=== PATIENT | female | born 1950 | race Caucasian/White ===

== ENCOUNTER 2023-06-15 21:27 | Inpatient (IN) | payer BC, OTHER ==
[~2023-06-15] VITALS: Ht 172.7 cm; Wt 150.6 kg
[2023-06-15 22:33] LABS: BASOPHILS % (AUTO) 0.1 % (0.0-2.0); EOSINOPHILS # (AUTO) 0.1 K/uL (0.0-0.7); EOSINOPHILS % (AUTO) 1.7 % (0.0-6.0); HEMATOCRIT 37 % (33-45); LYMPHOCYTES # (AUTO) 1.3 K/uL (0.8-4.8); LYMPHOCYTES % (AUTO) 15.9 % (20.0-44.0); MEAN CORPUSCULAR HEMOGLOBIN 27 PG (26.0-33.0); MEAN CORPUSCULAR HGB CONC 32 g/dl (31.0-36.0); MEAN CORPUSCULAR VOLUME 83 fL (82-100); MONOCYTES # (AUTO) 0.9 K/uL (0.1-1.30); MONOCYTES % (AUTO) 10.5 % (2.0-12.0); NEUTROPHILS # (AUTO) 6.1 K/uL (1.8-8.9); NEUTROPHILS % (AUTO) 71.8 % (43.0-81.0); PLATELET COUNT (AUTO) 227 K/uL (150-450); RED BLOOD CELL COUNT(AUTO) 4.51 MIL/uL (4.0-5.2); RED CELL DISTRIBUTION WIDTH 17.2 % (11.5-15.0); WHITE BLOOD COUNT (AUTO) 8.5 K/uL (4.3-11.0)
[2023-06-15] MEDS ORDERED: methylPREDNISolone SOD SUCC 125 MG/2ML VIAL ONE (22:54)
[2023-06-15 23:00] LABS: ALANINE AMINOTRANSFERASE 18 U/L (12-78); ALBUMIN 2.6 g/dL (3.4-5.0); ALKALINE PHOSPHATASE 129 U/L (46-116); ASPARTATE AMINOTRANSFERASE 26 U/L (15-37); BILIRUBIN,DIRECT 0.2 mg/dL (0.0-0.2); BILIRUBIN,TOTAL 0.5 mg/dL (0.2-1.0); CALCIUM, SERUM 8.4 mg/dL (8.5-10.1); CHLORIDE 101 mmol/L (98-107); CREATININE 0.7 mg/dL (0.6-1.3); GLUCOSE 125 mg/dL (74-106); NT-PRO BNP 1078 pg/mL (0-125); POTASSIUM 3.7 mmol/L (3.5-5.1); SODIUM SERUM 143 mmol/L (136-145); TOTAL PROTEIN, SERUM 7.3 g/dL (6.4-8.2); UREA NITROGEN, BLOOD 18 mg/dL (7-18)
[2023-06-15] MEDS: methylPREDNISolone SOD SUCC 125 MG/2ML VIAL IV ONE (23:00)
[2023-06-15 23:15] LABS: CARBON DIOXIDE 52 mmol/L (21-32)
[2023-06-15 23:36] LABS: APPEARANCE,URINE TURBID (CLEAR); BILIRUBIN,URINE NEGATIVE (NEGATIVE); BLOOD, URINE NEGATIVE Ery/uL (NEGATIVE); COLOR,URINE DARK YELLOW (YELLOW); KETONES,URINE NEGATIVE (NEGATIVE); LEUKOCYTE ESTERASE ,URINE 1+ (NEGATIVE); NITRITE, URINE POSITIVE (NEGATIVE); PROTEIN,URINE NEGATIVE (NEGATIVE); UGLUCOSE NEGATIVE (NEGATIVE)
[2023-06-15 23:37] LABS: ADD URINE CULTURE YES; BACTERIA,URINE Few /HPF (None Seen); SQUAMOUS EPITHELIAL CELL,UR Rare /HPF (None Seen)
[2023-06-15] MEDS ORDERED: FUROSEMIDE 40 MG/4 ML VIAL ONE (23:48)
[2023-06-15] MEDS: FUROSEMIDE 40 MG/4 ML VIAL IV ONE (23:56)
[2023-06-15] MEDS ORDERED: NITROFURANTOIN/MONOHYDRATE MACROCRYSTALS 100 MG CAPSULE ONE (23:58)
[2023-06-16] VITALS (23 sets, daily range): BP systolic 105–152; BP diastolic 52–119; TEMP 97.7–98.6; O2SAT 91–96
[2023-06-16] MEDS: NITROFURANTOIN/MONOHYDRATE MACROCRYSTALS 100 MG CAPSULE PO ONE (00:01)
[2023-06-16 07:43] LABS: ABG BASE EXCESS 19.9 mmol/L; ABG OXYGEN SATURATION 97.9 % (92.0-98.5); ABG PCO2 102.4 mmHg (35.0-45.0); ABG PH 7.321 (7.350-7.450); ABG PO2 110.9 mmHg (75.0-100.0); ABG TOTAL HEMOGLOBIN 13.8 G/dL (12.0-16.0); COHb 0.4 % (0.5-1.5); MetHb 0.3 % (0.0-1.5); O2Hb 97.2 % (94.0-97.0); SITE, ABG Left Radial
[2023-06-16] MEDS ORDERED: MELA5TAB PO (08:38)
[2023-06-16] MEDS ORDERED: ACET-2605 PO (08:38)
[2023-06-16] MEDS ORDERED: ERYT3.5O9 EACHEYE (08:38)
[2023-06-16] MEDS ORDERED: NA P133E RC (08:38)
[2023-06-16] MEDS ORDERED: FAMO-130 PO (08:38)
[2023-06-16] MEDS ORDERED: POLY17PO4 PO (08:38)
[2023-06-16] MEDS ORDERED: CRAN250C PO (08:38)
[2023-06-16] MEDS ORDERED: AMLO2.5T2 PO (08:38)
[2023-06-16] MEDS ORDERED: ACET-868 PO (08:38)
[2023-06-16] MEDS ORDERED: ATEN50TA PO (08:38)
[2023-06-16] MEDS ORDERED: MENT113O6 TP (08:38)
[2023-06-16] MEDS ORDERED: BISA10SU11 RC (08:38)
[2023-06-16] MEDS ORDERED: MAGN400O6 PO (08:38)
[2023-06-16] MEDS ORDERED: ATOR20TA PO (08:38)
[2023-06-16] MEDS ORDERED: TOLN1POW TP (08:38)
[2023-06-16] MEDS ORDERED: HYDR-4076 PO (08:38)
[2023-06-16] MEDS ORDERED: BUDE0.253 IH (08:38)
[2023-06-16] MEDS ORDERED: DOCU250C14 PO (08:38)
[2023-06-16] MEDS ORDERED: PETR113O TP (08:38)
[2023-06-16] MEDS ORDERED: FERR325T28 PO (08:38)
[2023-06-16] MEDS ORDERED: FURO-145 PO (08:38)
[2023-06-16 10:06] LABS: ABG OXYGEN SATURATION 92.5 % (92.0-98.5); ABG PCO2 88.5 mmHg (35.0-45.0); ABG PH 7.373 (7.350-7.450); ABG TOTAL HEMOGLOBIN 13.9 G/dL (12.0-16.0); COHb 0.3 % (0.5-1.5); MetHb 0.4 % (0.0-1.5); O2Hb 91.9 % (94.0-97.0); SITE, ABG Left Radial; VENT MODE, BG ST 12/5 30% RR 16
[2023-06-16] MEDS ORDERED: ONDANSETRON HCL/PF 4 MG/2 ML VIAL IV PRN (11:30)
[2023-06-16] MEDS ORDERED: hydrALAZINE HCL 25 MG TABLET PO PRN (11:30)
[2023-06-16 12:21] LABS: BASOPHILS % (AUTO) 0.1 % (0.0-2.0); HEMATOCRIT 39 % (33-45); HEMOGLOBIN 12.3 g/dL (11.5-14.8); LYMPHOCYTES # (AUTO) 0.8 K/uL (0.8-4.8); LYMPHOCYTES % (AUTO) 12.6 % (20.0-44.0); MEAN CORPUSCULAR HEMOGLOBIN 26 PG (26.0-33.0); MEAN CORPUSCULAR HGB CONC 31 g/dl (31.0-36.0); MEAN CORPUSCULAR VOLUME 84 fL (82-100); MONOCYTES # (AUTO) 0.1 K/uL (0.1-1.30); MONOCYTES % (AUTO) 1.3 % (2.0-12.0); NEUTROPHILS # (AUTO) 5.1 K/uL (1.8-8.9); PLATELET COUNT (AUTO) 236 K/uL (150-450); RED BLOOD CELL COUNT(AUTO) 4.69 MIL/uL (4.0-5.2); RED CELL DISTRIBUTION WIDTH 17.3 % (11.5-15.0)
[2023-06-16] MEDS: BUDESONIDE RESPULE INH 0.25 MG/2 ML AMPUL.NEB NEB SCH (15:00)
[2023-06-16 15:42] LABS: CALCIUM, SERUM 9.2 mg/dL (8.5-10.1); CREATININE 0.9 mg/dL (0.6-1.3); POTASSIUM 3.9 mmol/L (3.5-5.1)
[2023-06-16] MEDS: FAMOTIDINE/PF INJ 20 MG/2 ML VIAL IV SCH (16:45)
[2023-06-16] MEDS: FUROSEMIDE 40 MG/4 ML VIAL IV SCH (16:45)
[2023-06-16] MEDS: ENOXAPARIN SODIUM 40 MG/0.4 ML DISP.SYRIN SQ SCH (20:52)
[2023-06-16] MEDS: ATORVASTATIN 10 MG TABLET PO SCH (21:10)
[2023-06-16] MEDS: ACETAMINOPHEN 325 MG TABLET PO PRN (23:34)
[2023-06-17] VITALS (31 sets, daily range): BP systolic 102–144; BP diastolic 42–80; TEMP 97.9–98.3; O2SAT 88–99
[2023-06-17 04:22] LABS: BASOPHILS % (AUTO) 0.2 % (0.0-2.0); EOSINOPHILS # (AUTO) 0.1 K/uL (0.0-0.7); EOSINOPHILS % (AUTO) 1.3 % (0.0-6.0); HEMATOCRIT 37 % (33-45); HEMOGLOBIN 11.6 g/dL (11.5-14.8); LYMPHOCYTES # (AUTO) 1.1 K/uL (0.8-4.8); MEAN CORPUSCULAR HEMOGLOBIN 27 PG (26.0-33.0); MEAN CORPUSCULAR HGB CONC 32 g/dl (31.0-36.0); MEAN CORPUSCULAR VOLUME 84 fL (82-100); MONOCYTES # (AUTO) 0.9 K/uL (0.1-1.30); MONOCYTES % (AUTO) 8.9 % (2.0-12.0); NEUTROPHILS # (AUTO) 8.5 K/uL (1.8-8.9); NEUTROPHILS % (AUTO) 79.6 % (43.0-81.0); PLATELET COUNT (AUTO) 263 K/uL (150-450); RED CELL DISTRIBUTION WIDTH 17.3 % (11.5-15.0); WHITE BLOOD COUNT (AUTO) 10.6 K/uL (4.3-11.0)
[2023-06-17 04:39] LABS: CALCIUM, SERUM 8.9 mg/dL (8.5-10.1); CHLORIDE 96 mmol/L (98-107); CREATININE 0.8 mg/dL (0.6-1.3); GLUCOSE 120 mg/dL (74-106); MAGNESIUM 1.7 mg/dL (1.8-2.4); PHOSPHORUS 3.6 mg/dL (2.5-4.9); POTASSIUM 3.8 mmol/L (3.5-5.1); SODIUM SERUM 143 mmol/L (136-145); UREA NITROGEN, BLOOD 30 mg/dL (7-18)
[2023-06-17 04:41] LABS: CARBON DIOXIDE 49 mmol/L (21-32)
[2023-06-17 04:48] LABS: THYROID STIMULATING HORMONE 1.027 uIU/mL (0.358-3.74)
[2023-06-17] MEDS: MAGNESIUM OXIDE 400 MG TABLET PO ONE (08:05)
[2023-06-17] MEDS: AMLODIPINE BESYLATE 2.5 MG TABLET PO SCH (09:13)
[2023-06-17] MEDS: FAMOTIDINE (20 MG) 20 MG TABLET PO SCH (09:13)
[2023-06-17] MEDS: ATENOLOL 50 MG TABLET PO SCH (09:14)
[2023-06-17] MEDS: HYDROCODONE/APAP 5/325MG TABLET PO PRN (14:45)
[2023-06-17] MEDS: RIVAROXABAN 10 MG TABLET PO SCH (18:08)
[2023-06-18] VITALS (19 sets, daily range): BP systolic 114–133; BP diastolic 47–78; TEMP 97.5–98.4; O2SAT 87–100
[2023-06-18 05:34] LABS: CALCIUM, SERUM 8.6 mg/dL (8.5-10.1); CHLORIDE 94 mmol/L (98-107); CREATININE 0.8 mg/dL (0.6-1.3); GLUCOSE 105 mg/dL (74-106); POTASSIUM 3.6 mmol/L (3.5-5.1); SODIUM SERUM 141 mmol/L (136-145); UREA NITROGEN, BLOOD 31 mg/dL (7-18)
[2023-06-18 05:38] LABS: CARBON DIOXIDE 50 mmol/L (21-32)
[2023-06-18] MEDS ORDERED: Z GUARD REMEDY 4 OZ OINT TP PRN (08:30)
[2023-06-18] MEDS ORDERED: CEFTRIAXONE 1 G in IV D5W 50 ML IV SCH (09:00)
[2023-06-18] MEDS: Z GUARD REMEDY 4 OZ OINT TP SCH (09:35)
[2023-06-18] MEDS: CLOTRIMAZOLE 1% 15 GM TUBE TP SCH (09:35)
[2023-06-18] MEDS: NITROFURANTOIN/MONOHYDRATE MACROCRYSTALS 100 MG CAPSULE PO SCH (10:07)
[2023-06-18] MEDS: IPRATROPIUM NEB FS 0.5 MG/2.5 ML AMPUL.NEB NEB SCH (13:20)
[2023-06-18] MEDS: ALBUTEROL FS 2.5 MG/0.5 ML VIAL.NEB NEB SCH (13:20)
[2023-06-18 14:20] LABS: ABG OXYGEN SATURATION 90.6 % (92.0-98.5); ABG PCO2 79.6 mmHg (35.0-45.0); ABG PH 7.415 (7.350-7.450); ABG PO2 61.2 mmHg (75.0-100.0); ABG TOTAL HEMOGLOBIN 12.6 G/dL (12.0-16.0); AaDO2 15.2 mmHg; COHb 0.9 % (0.5-1.5); MetHb 0.2 % (0.0-1.5); O2Hb 89.6 % (94.0-97.0); SITE, ABG Left Radial
[2023-06-18] MEDS ORDERED: MAGNESIUM HYDROXIDE 30 ML UDC PO PRN (16:30)
[2023-06-18] MEDS ORDERED: POLYETHYLENE GLYCOL 3350 17 GM POWD.PACK PO PRN (16:30)
[2023-06-18] MEDS ORDERED: BISACODYL SUPP (10 MG) 10 MG/SUPP.RECT SUPP.RECT RC PRN (16:30)
[2023-06-18] MEDS ORDERED: hydrALAZINE HCL 25 MG TABLET PO PRN (16:30)
[2023-06-18] MEDS: PROSOURCE / PROSTAT (PYXIS) 30 ML UDC PO SCH (17:00)
[2023-06-18] MEDS: DOCUSATE SODIUM 250 MG CAPSULE PO SCH (17:53)
[2023-06-18] MEDS: FERROUS SULFATE (325 MG) 325 MG/TAB TABLET PO SCH (17:53)
[2023-06-19] VITALS (12 sets, daily range): BP systolic 108–145; BP diastolic 51–64; TEMP 97.7–99; O2SAT 90–99
[2023-06-19 07:14] LABS: BASOPHILS % (AUTO) 0.2 % (0.0-2.0); EOSINOPHILS # (AUTO) 0.2 K/uL (0.0-0.7); EOSINOPHILS % (AUTO) 2.6 % (0.0-6.0); HEMATOCRIT 35 % (33-45); HEMOGLOBIN 11.1 g/dL (11.5-14.8); LYMPHOCYTES # (AUTO) 1.4 K/uL (0.8-4.8); LYMPHOCYTES % (AUTO) 22.3 % (20.0-44.0); MEAN CORPUSCULAR HEMOGLOBIN 26 PG (26.0-33.0); MEAN CORPUSCULAR HGB CONC 32 g/dl (31.0-36.0); MEAN CORPUSCULAR VOLUME 83 fL (82-100); MONOCYTES # (AUTO) 0.7 K/uL (0.1-1.30); MONOCYTES % (AUTO) 10.6 % (2.0-12.0); NEUTROPHILS # (AUTO) 4.1 K/uL (1.8-8.9); NEUTROPHILS % (AUTO) 64.3 % (43.0-81.0); PLATELET COUNT (AUTO) 213 K/uL (150-450); RED BLOOD CELL COUNT(AUTO) 4.23 MIL/uL (4.0-5.2); RED CELL DISTRIBUTION WIDTH 17.3 % (11.5-15.0); WHITE BLOOD COUNT (AUTO) 6.5 K/uL (4.3-11.0)
[2023-06-19 07:38] LABS: CALCIUM, SERUM 8.4 mg/dL (8.5-10.1); CHLORIDE 93 mmol/L (98-107); CREATININE 0.7 mg/dL (0.6-1.3); GLUCOSE 94 mg/dL (74-106); POTASSIUM 3.1 mmol/L (3.5-5.1); SODIUM SERUM 137 mmol/L (136-145); UREA NITROGEN, BLOOD 23 mg/dL (7-18)
[2023-06-19 07:43] LABS: CARBON DIOXIDE 41 mmol/L (21-32)
[2023-06-19 08:52] LABS: ABG BASE EXCESS 19.1 mmol/L; ABG OXYGEN SATURATION 91.8 % (92.0-98.5); ABG PCO2 71.2 mmHg (35.0-45.0); ABG PH 7.436 (7.350-7.450); ABG PO2 64.6 mmHg (75.0-100.0); ABG TOTAL HEMOGLOBIN 12.1 G/dL (12.0-16.0); AaDO2 21.8 mmHg; COHb 0.9 % (0.5-1.5); MetHb 0.1 % (0.0-1.5); O2Hb 90.9 % (94.0-97.0); SITE, ABG Left Radial; VENT MODE, BG 1LPM NC
[2023-06-19] MEDS: FAMOTIDINE (20 MG) 20 MG TABLET PO SCH (09:14)
[2023-06-19] MEDS: MUPIROCIN OINT 2% 22 GM TUBE NS SCH (09:15)
[2023-06-19] MEDS: POTASSIUM CHLORIDE 20 MEQ TAB.PRT.SR PO SCH (11:17)
[2023-06-20] VITALS (19 sets, daily range): BP systolic 104–149; BP diastolic 39–69; TEMP 97.7–98.4; O2SAT 92–99
[2023-06-20] MEDS: FUROSEMIDE 40 MG TABLET PO SCH (08:44)
[2023-06-20] MEDS ORDERED: MUPI22OI7 NS (09:15)
[2023-06-20] MEDS ORDERED: RIVA10TA PO (09:15)
[2023-06-20] MEDS ORDERED: IPRA3AMP23 IH (09:15)
[2023-06-20 11:13] LABS: ABG BASE EXCESS 13.5 mmol/L; ABG OXYGEN SATURATION 92.2 % (92.0-98.5); ABG PH 7.448 (7.350-7.450); ABG TOTAL HEMOGLOBIN 12.5 G/dL (12.0-16.0); AaDO2 37.9 mmHg; MetHb 0.1 % (0.0-1.5); O2Hb 91.2 % (94.0-97.0); SITE, ABG Left Radial; VENT MODE, BG 1 L O2 NC
[2023-06-21] VITALS (15 sets, daily range): BP systolic 103–131; BP diastolic 53–68; TEMP 97.8–98.4; O2SAT 92–99
[2023-06-21] MEDS: AMLODIPINE BESYLATE 2.5 MG TABLET PO SCH (08:16)
[2023-06-21 10:12] LABS: CALCIUM, SERUM 8.1 mg/dL (8.5-10.1); CARBON DIOXIDE 38 mmol/L (21-32); CHLORIDE 97 mmol/L (98-107); CREATININE 0.7 mg/dL (0.6-1.3); GLUCOSE 162 mg/dL (74-106); POTASSIUM 3.1 mmol/L (3.5-5.1); SODIUM SERUM 139 mmol/L (136-145); UREA NITROGEN, BLOOD 16 mg/dL (7-18)
[2023-06-21] MEDS: POTASSIUM CHLORIDE 20 MEQ TAB.PRT.SR PO SCH (11:25)
[2023-06-21] MEDS ORDERED: NITR-84 PO (13:21)
[2023-06-21] MEDS ORDERED: AMLO2.5T4 PO (13:24)
[2023-06-21] MEDS ORDERED: FURO40TA5 PO (13:24)
[2023-06-21] MEDS ORDERED: NITROFURANTOIN/MONOHYDRATE MACROCRYSTALS 100 MG CAPSULE PO SCH (14:00)
[2023-06-22] VITALS (14 sets, daily range): BP systolic 108–134; BP diastolic 48–62; TEMP 98.1–98.6; O2SAT 94–98
[2023-06-22 07:14] LABS: BASOPHILS % (AUTO) 0.2 % (0.0-2.0); EOSINOPHILS # (AUTO) 0.3 K/uL (0.0-0.7); EOSINOPHILS % (AUTO) 3.8 % (0.0-6.0); HEMATOCRIT 35 % (33-45); HEMOGLOBIN 11.4 g/dL (11.5-14.8); LYMPHOCYTES # (AUTO) 1.5 K/uL (0.8-4.8); LYMPHOCYTES % (AUTO) 19.5 % (20.0-44.0); MEAN CORPUSCULAR HEMOGLOBIN 27 PG (26.0-33.0); MEAN CORPUSCULAR HGB CONC 32 g/dl (31.0-36.0); MEAN CORPUSCULAR VOLUME 82 fL (82-100); MONOCYTES # (AUTO) 0.7 K/uL (0.1-1.30); MONOCYTES % (AUTO) 9.8 % (2.0-12.0); NEUTROPHILS % (AUTO) 66.7 % (43.0-81.0); PLATELET COUNT (AUTO) 210 K/uL (150-450); RED CELL DISTRIBUTION WIDTH 17.3 % (11.5-15.0); WHITE BLOOD COUNT (AUTO) 7.5 K/uL (4.3-11.0)
[2023-06-22 08:00] LABS: CALCIUM, SERUM 8.4 mg/dL (8.5-10.1); CARBON DIOXIDE 37 mmol/L (21-32); CHLORIDE 99 mmol/L (98-107); CREATININE 0.7 mg/dL (0.6-1.3); GLUCOSE 106 mg/dL (74-106); MAGNESIUM 2.1 mg/dL (1.8-2.4); PHOSPHORUS 3.5 mg/dL (2.5-4.9); POTASSIUM 3.5 mmol/L (3.5-5.1); SODIUM SERUM 139 mmol/L (136-145); UREA NITROGEN, BLOOD 23 mg/dL (7-18)
[2023-06-22] MEDS: HYDROCODONE/APAP 10/325MG TABLET PO PRN (10:23)
[2023-06-23] VITALS (14 sets, daily range): BP systolic 110–130; BP diastolic 44–63; TEMP 97.3–98.8; O2SAT 92–100
[2023-06-23 07:38] LABS: BASOPHILS % (AUTO) 0.5 % (0.0-2.0); EOSINOPHILS # (AUTO) 0.3 K/uL (0.0-0.7); EOSINOPHILS % (AUTO) 3.9 % (0.0-6.0); HEMATOCRIT 35 % (33-45); HEMOGLOBIN 11.1 g/dL (11.5-14.8); LYMPHOCYTES # (AUTO) 1.4 K/uL (0.8-4.8); LYMPHOCYTES % (AUTO) 21.6 % (20.0-44.0); MEAN CORPUSCULAR HEMOGLOBIN 26 PG (26.0-33.0); MEAN CORPUSCULAR HGB CONC 32 g/dl (31.0-36.0); MEAN CORPUSCULAR VOLUME 82 fL (82-100); MONOCYTES # (AUTO) 0.7 K/uL (0.1-1.30); MONOCYTES % (AUTO) 11.3 % (2.0-12.0); NEUTROPHILS # (AUTO) 4.1 K/uL (1.8-8.9); NEUTROPHILS % (AUTO) 62.7 % (43.0-81.0); PLATELET COUNT (AUTO) 223 K/uL (150-450); RED BLOOD CELL COUNT(AUTO) 4.24 MIL/uL (4.0-5.2); RED CELL DISTRIBUTION WIDTH 17.2 % (11.5-15.0); WHITE BLOOD COUNT (AUTO) 6.5 K/uL (4.3-11.0)
[2023-06-23 07:45] LABS: CALCIUM, SERUM 8.2 mg/dL (8.5-10.1); CARBON DIOXIDE 38 mmol/L (21-32); CHLORIDE 100 mmol/L (98-107); CREATININE 0.7 mg/dL (0.6-1.3); GLUCOSE 92 mg/dL (74-106); MAGNESIUM 2.1 mg/dL (1.8-2.4); PHOSPHORUS 3.5 mg/dL (2.5-4.9); POTASSIUM 3.5 mmol/L (3.5-5.1); SODIUM SERUM 139 mmol/L (136-145); UREA NITROGEN, BLOOD 25 mg/dL (7-18)
[2023-06-23] MEDS: LORATADINE 10 MG TABLET PO SCH (20:19)
[2023-06-24] VITALS (15 sets, daily range): BP systolic 100–125; BP diastolic 46–54; TEMP 97.5–98.2; O2SAT 91–98
[2023-06-24] MEDS: ACETAMINOPHEN 325 MG TABLET PO PRN (21:18)
[2023-06-25] VITALS (11 sets, daily range): BP systolic 108–122; BP diastolic 40–63; TEMP 97.5–98.1; O2SAT 92–99
[2023-06-25 07:27] LABS: BASOPHILS % (AUTO) 0.4 % (0.0-2.0); CALCIUM, SERUM 8.1 mg/dL (8.5-10.1); CARBON DIOXIDE 38 mmol/L (21-32); CHLORIDE 100 mmol/L (98-107); CREATININE 0.6 mg/dL (0.6-1.3); EOSINOPHILS # (AUTO) 0.2 K/uL (0.0-0.7); EOSINOPHILS % (AUTO) 4.1 % (0.0-6.0); GLUCOSE 110 mg/dL (74-106); HEMATOCRIT 34 % (33-45); LYMPHOCYTES # (AUTO) 1.1 K/uL (0.8-4.8); LYMPHOCYTES % (AUTO) 20.9 % (20.0-44.0); MEAN CORPUSCULAR HEMOGLOBIN 27 PG (26.0-33.0); MEAN CORPUSCULAR HGB CONC 33 g/dl (31.0-36.0); MEAN CORPUSCULAR VOLUME 82 fL (82-100); MONOCYTES # (AUTO) 0.8 K/uL (0.1-1.30); MONOCYTES % (AUTO) 14.7 % (2.0-12.0); NEUTROPHILS # (AUTO) 3.1 K/uL (1.8-8.9); NEUTROPHILS % (AUTO) 59.9 % (43.0-81.0); PLATELET COUNT (AUTO) 230 K/uL (150-450); POTASSIUM 3.6 mmol/L (3.5-5.1); RED BLOOD CELL COUNT(AUTO) 4.12 MIL/uL (4.0-5.2); RED CELL DISTRIBUTION WIDTH 17.1 % (11.5-15.0); SODIUM SERUM 139 mmol/L (136-145); UREA NITROGEN, BLOOD 23 mg/dL (7-18); WHITE BLOOD COUNT (AUTO) 5.1 K/uL (4.3-11.0)
[2023-06-26] VITALS (12 sets, daily range): BP systolic 116–134; BP diastolic 46–71; TEMP 97.3–98.1; O2SAT 93–99
[2023-06-27] VITALS (13 sets, daily range): BP systolic 102–126; BP diastolic 49–58; TEMP 98–98.6; O2SAT 89–98
[2023-06-27] MEDS ORDERED: OLANZAPINE 10 MG VIAL IM ONE (17:30)
[2023-06-28] VITALS (10 sets, daily range): BP systolic 108–124; BP diastolic 53–73; TEMP 97.9–98.2; O2SAT 92–98
[2023-06-29 07:00] VITALS: BP 131/59; TEMP 97.6; O2SAT 96
[2023-06-29 07:17] LABS: CALCIUM, SERUM 8.6 mg/dL (8.5-10.1); CREATININE 0.6 mg/dL (0.6-1.3); MAGNESIUM 2.2 mg/dL (1.8-2.4); PHOSPHORUS 4.1 mg/dL (2.5-4.9); POTASSIUM 3.8 mmol/L (3.5-5.1)
[2023-06-29 07:23] LABS: BASOPHILS % (AUTO) 0.3 % (0.0-2.0); EOSINOPHILS # (AUTO) 0.2 K/uL (0.0-0.7); EOSINOPHILS % (AUTO) 3.8 % (0.0-6.0); HEMATOCRIT 36 % (33-45); HEMOGLOBIN 11.6 g/dL (11.5-14.8); LYMPHOCYTES # (AUTO) 1.2 K/uL (0.8-4.8); LYMPHOCYTES % (AUTO) 23.5 % (20.0-44.0); MEAN CORPUSCULAR HEMOGLOBIN 27 PG (26.0-33.0); MEAN CORPUSCULAR HGB CONC 32 g/dl (31.0-36.0); MEAN CORPUSCULAR VOLUME 83 fL (82-100); MONOCYTES # (AUTO) 0.6 K/uL (0.1-1.30); MONOCYTES % (AUTO) 12.3 % (2.0-12.0); NEUTROPHILS # (AUTO) 3.2 K/uL (1.8-8.9); NEUTROPHILS % (AUTO) 60.1 % (43.0-81.0); PLATELET COUNT (AUTO) 267 K/uL (150-450); RED BLOOD CELL COUNT(AUTO) 4.34 MIL/uL (4.0-5.2); RED CELL DISTRIBUTION WIDTH 16.8 % (11.5-15.0); WHITE BLOOD COUNT (AUTO) 5.3 K/uL (4.3-11.0)
[2023-06-29 07:35] VITALS: O2SAT 97
[2023-06-29 07:50] VITALS: O2SAT 98
== END 2023-06-29 08:50 | DRG 291 ==
LOC: ER 21:30 → ICU 06-16 09:54 → MED 06-18 05:53 → TELE 06-18 06:07 → MED 06-28 10:13
PROVIDERS: ADMIT Internal Medicine; ATTEND Nurse Practitioner Acute Care
PROC: 5A09357 Assistance with Respiratory Ventilation, Less than 24 Consecutive Hours, Continuous Positive Airway Pressure (ICD-10-PCS; principal; 2023-06-16)
DX: I11.0 Hypertensive heart disease with heart failure (principal); I50.33 Acute on chronic diastolic (congestive) heart failure; J96.21 Acute and chronic respiratory failure with hypoxia; J96.22 Acute and chronic respiratory failure with hypercapnia; J44.1 Chronic obstructive pulmonary disease with (acute) exacerbation; D68.69 Other thrombophilia; E66.2 Morbid (severe) obesity with alveolar hypoventilation; N39.0 Urinary tract infection, site not specified; Z68.43 Body mass index [BMI] 50.0-59.9, adult; I48.20 Chronic atrial fibrillation, unspecified; I27.81 Cor pulmonale (chronic); K74.60 Unspecified cirrhosis of liver; Z20.822 Contact with and (suspected) exposure to COVID-19; E78.5 Hyperlipidemia, unspecified; E87.6 Hypokalemia; E88.09 Other disorders of plasma-protein metabolism, not elsewhere classified; Z79.01 Long term (current) use of anticoagulants; Z85.3 Personal history of malignant neoplasm of breast; Z90.11 Acquired absence of right breast and nipple; Z95.0 Presence of cardiac pacemaker; Z74.01 Bed confinement status; Z99.81 Dependence on supplemental oxygen; B96.20 Unspecified Escherichia coli [E. coli] as the cause of diseases classified elsewhere; L98.8 Other specified disorders of the skin and subcutaneous tissue; L89.326 Pressure-induced deep tissue damage of left buttock; L89.316 Pressure-induced deep tissue damage of right buttock; L89.156 Pressure-induced deep tissue damage of sacral region; R73.03 Prediabetes; I27.20 Pulmonary hypertension, unspecified
CPT/HCPCS: 36415; 36600; 70450-TC; 71045-TC; 71250-TC; 80048-TC; 80061-TC; 80076-TC; 81001; 82803-TC; 83735-TC; 83880; 84100-TC; 84443-TC; 84484-TC; 85025-TC; 87081-TC; 87086-TC; 93307-TC; 94660; 94760-TC; 94761-TC; 94799-TC; 97110-TC; 97530-TC; 97535-TC; G0378; J1650; J1940; J2930; J3490